=== PATIENT | female | born 1945 ===

== ENCOUNTER 2018-10-26 08:55 | Day surgery (SDC) | payer OTHER ==
[~2018-10-26 08:55] MED LIST: GABAPENT PO; LIPITOR20 MG PO; LISINOPRIL10 MG; SYNTHROID50 MCG PO
== END 2018-10-26 21:15 | disposition home or self-care (01) ==
LOC: CIR.AMB 08:55
DX: N84.0 Polyp of corpus uteri (principal)

== ENCOUNTER 2019-05-11 11:30 | Inpatient (IN) | payer OTHER ==
[~2019-05-11] VITALS: Ht 157.5 cm; Wt 78.0 kg
[2019-05-17] MEDS ORDERED: ESTAZOLAM1 MG (10:50)
[2019-05-17] MEDS ORDERED: ATORVASTATIN CA20 MG (10:51)
[2019-05-17] MEDS ORDERED: ALLEGRA ALLERG180 MG (10:51)
[2019-05-17] MEDS ORDERED: PANTOPRAZOLE SO40 MG (10:51)
[2019-05-17] MEDS ORDERED: GRALISE600 MG (10:52)
== END 2019-05-20 11:57 | disposition home or self-care (01) | DRG 743 ==
LOC: OB/GYN 05-17 10:09 → O/R 05-17 10:09 → OB/GYN 05-17 11:15 → O/R 05-17 11:30 → OB/GYN 05-17 18:19
PROVIDERS: ADMIT Obstetrics & Gynecology
PROC: 0UB20ZZ Excision of Bilateral Ovaries, Open Approach (ICD-10-PCS; 2019-05-17)
PROC: 0UB70ZZ Excision of Bilateral Fallopian Tubes, Open Approach (ICD-10-PCS; 2019-05-17)
PROC: 0UT90ZZ Resection of Uterus, Open Approach (ICD-10-PCS; principal; 2019-05-17 11:15)
DX: N72 Inflammatory disease of cervix uteri (principal); N80.0 Endometriosis of uterus